=== PATIENT | male | born 2000 | race Caucasian/White ===

== ENCOUNTER 2018-04-23 11:48 | Inpatient (IN) | payer OTHER ==
[~2018-04-23] VITALS: Ht 177.8 cm; Wt 50.4 kg
[2018-04-23 12:22] LABS: BASO % 0 % (0-3); EOS % 0 % (0-3); HEMATOCRIT 42.9 % (39.0-53.0); HEMOGLOBIN 15.1 g/dL (13.0-17.5); LYMPH # 1.4 x10^3/uL (1.0-4.8); LYMPH % 10 % (24-48); MEAN CORPUSCULAR HEMOGLOBIN 32 pg (25-35); MEAN CORPUSCULAR HGB CONC 35 g/dL (31-37); MEAN CORPUSCULAR VOLUME 91 fL (79-100); MONO # 0.9 x10^3/uL (0.0-1.1); MONO % 7 % (0-9); NEUT % 82 % (31-73); PLATELET COUNT 329 x10^3/uL (140-400); RED BLOOD COUNT 4.71 x10^6/uL (4.30-5.70); RED CELL DISTRIBUTION WIDTH 12.7 % (11.5-14.5); WHITE BLOOD COUNT 13.4 x10^3/uL (4.0-11.0)
[2018-04-23 12:46] LABS: ALBUMIN 5.3 g/dL (3.4-5.0); ALBUMIN/GLOBULIN RATIO 1.2 (1.0-1.7); CALCIUM 10.7 mg/dL (8.5-10.1); CREATININE 1.1 mg/dL (0.7-1.3); GFR 86.2; POTASSIUM 3.5 mmol/L (3.5-5.1); TOTAL PROTEIN 9.7 g/dL (6.4-8.2)
--- NOTE | 2018-04-23 12:46 | RAD ---
CHEST AP ONLY Clinical Indication: AMS. PT STATES HAVING MEMORY LOSS Comparison: None. Findings: The cardiomediastinal silhouette is normal. Lungs are clear. There is no pneumothorax. No pleural effusion is appreciated. No acute bone abnormality. IMPRESSION: No acute cardiopulmonary process. Electronically signed by: Nathen Mares MD (04/23/2018 12:43 PM) [facility]
--- NOTE | 2018-04-23 13:42 | RAD ---
CT HEAD WO CONTRAST History: Recent onset confusion for 2 day Comparison: None. Technique: Noncontrast CT imaging was performed of the head. Exposure: One or more of the following individualized dose reduction techniques were utilized for this examination: 1. Automated exposure control 2. Adjustment of the mA and/or kV according to patient size 3. Use of iterative reconstruction technique. Findings: No acute extra-axial or parenchymal hemorrhage is identified. There is no significant intra-axial mass effect, midline shift, or extra-axial fluid collection. The aragon-white differentiation of the major vascular territories is preserved. The ventricles, sulci, and cisterns are within normal limits in size and configuration. The mastoid air cells and the visualized paranasal sinuses are aerated. No acute calvarial abnormality is identified. Impression: 1. No acute intracranial abnormality is identified. Electronically signed by: Ramsey Landers MD (04/23/2018 1:39 PM) [facility]
[2018-04-23] MEDS ORDERED: ALPRAZolam 0.5 MG TABLET PO ONE (13:45)
[2018-04-23 13:51] LABS: BILIRUBIN,URINE SMALL (NEG); CLARITY,URINE CLEAR; COLOR,URINE YELLOW; NITRITE,URINE NEGATIVE (NEG); PH,URINE 6.5; PROTEIN,URINE NEGATIVE (NEG-TRACE)
[2018-04-23 13:58] LABS: BARBITURATES NEG (NEG); BENZODIAZEPINES NEG (NEG); CANNABINOIDS POS (NEG); COCAINE NEG (NEG); METHADONE NEG (NEG); OPIATES NEG (NEG); PHENCYCLIDINE NEG (NEG)
[2018-04-23 13:59] LABS: AMPHETAMINE/METHAMPHETAMINE NEG (NEG)
[2018-04-23 14:05] LABS: RBC,URINE OCC /HPF (0-2); WBC,URINE OCC /HPF (0-4)
[2018-04-23 14:06] LABS: BACTERIA,URINE 0 /HPF (0-FEW); SQUAMOUS EPITHELIAL CELL,UR OCC /LPF
--- NOTE | 2018-04-23 15:44 | PHYS DOC ---
Past Medical History Past Medical History: No Pertinent History Past Surgical History: No Surgical History Alcohol Use: None Drug Use: Marijuana Adult General Chief Complaint Chief Complaint: ALTERED MENTAL STATUS HPI HPI Patient is a 17 year old male who presents with mental status. The patient's parents state that he left to go to work yesterday and came home at a normal time. They state that he told them he was missing time and has lost his memory of what occurred at work. His parents state that he has been making comments that do not make sense. He does admit to using marijuana but denies any other recreational drug use. He denies headache, fever or any recent illness. They state that he has no psychiatric diagnoses. The patient denies any visual or auditory hallucinations. He does state that he has frequent conversations with himself but describes the voice as his inner consciousness. Review of Systems Review of Systems Constitutional: Denies fever or chills [] Eyes: Denies change in visual acuity, redness, or eye pain [] HENT: Denies nasal congestion or sore throat [] Respiratory: Denies cough or shortness of breath [] Cardiovascular: No additional information not addressed in HPI [] GI: Denies abdominal pain, nausea, vomiting, bloody stools or diarrhea [] : Denies dysuria or hematuria [] Musculoskeletal: Denies back pain or joint pain [] Integument: Denies rash or skin lesions [] Neurologic: Denies headache, focal weakness or sensory changes [] Endocrine: Denies polyuria or polydipsia [] All other systems were reviewed and found to be within normal limits, except as documented in this note. Current Medications Current Medications Current Medications Medications (Trade) Dose Ordered Sig/Magdaleno Start Time Stop Time Status Last Admin Dose Admin Alprazolam (Xanax) 0.5 mg 1X ONCE 04/23/18 13:45 04/23/18 13:46 DC 04/23/18 14:00 0.5 MG Allergies Allergies Allergies Coded Allergies Type Severity Reaction Last Updated Verified nickel Allergy Unknown Rash 04/23/18 Yes Physical Exam Physical Exam Constitutional: Well developed, well nourished, no acute distress, non-toxic appearance. [] HENT: Normocephalic, atraumatic, bilateral external ears normal, oropharynx moist, no oral exudates, nose normal. [] Eyes: PERRLA, EOMI, conjunctiva normal, no discharge. [] Neck: Normal range of motion, no tenderness, supple, no stridor. [] Cardiovascular:Heart rate regular rhythm, no murmur [] Lungs & Thorax: Bilateral breath sounds clear to auscultation [] Abdomen: Bowel sounds normal, soft, no tenderness, no masses, no pulsatile masses. [] Skin: Warm, dry, no erythema, no rash. [] Back: No tenderness, no CVA tenderness. [] Extremities: No tenderness, no cyanosis, no clubbing, ROM intact, no edema. [] Neurologic: Alert and oriented X 3, normal motor function, normal sensory function, no focal deficits noted, cranial nerves II through XII are grossly intact. [] Psychologic: Affect normal, judgement normal, mood normal. [] Current Patient Data Vital Signs Vital Signs Date Time Temp Pulse Resp B/P (MAP) Pulse Ox O2 Delivery O2 Flow Rate FiO2 04/23/18 13:53 80 16 98 04/23/18 11:53 98.9 138/79 (98) Room Air 98.9 Lab Values Laboratory Tests Test 04/23/18 12:10 04/23/18 12:21 04/23/18 13:35 White Blood Count 13.4 x10^3/uL (4.0-11.0) H Red Blood Count 4.71 x10^6/uL (4.30-5.70) Hemoglobin 15.1 g/dL (13.0-17.5) Hematocrit 42.9 % (39.0-53.0) Mean Corpuscular Volume 91 fL (79-100) Mean Corpuscular Hemoglobin 32 pg (25-35) Mean Corpuscular Hemoglobin Concent 35 g/dL (31-37) Red Cell Distribution Width 12.7 % (11.5-14.5) Platelet Count 329 x10^3/uL (140-400) Neutrophils (%) (Auto) 82 % (31-73) H Lymphocytes (%) (Auto) 10 % (24-48) L Monocytes (%) (Auto) 7 % (0-9) Eosinophils (%) (Auto) 0 % (0-3) Basophils (%) (Auto) 0 % (0-3) Neutrophils # (Auto) 11.0 x10^3uL (1.8-7.7) H Lymphocytes # (Auto) 1.4 x10^3/uL (1.0-4.8) Monocytes # (Auto) 0.9 x10^3/uL (0.0-1.1) Eosinophils # (Auto) 0.0 x10^3/uL (0.0-0.7) Basophils # (Auto) 0.0 x10^3/uL (0.0-0.2) Sodium Level 141 mmol/L (136-145) Potassium Level 3.5 mmol/L (3.5-5.1) Chloride Level 99 mmol/L (98-107) Carbon Dioxide Level 29 mmol/L (21-32) Anion Gap 13 (6-14) Blood Urea Nitrogen 17 mg/dL (8-26) Creatinine 1.1 mg/dL (0.7-1.3) Estimated GFR (Cockcroft-Gault) 86.2 BUN/Creatinine Ratio 15 (6-20) Glucose Level 115 mg/dL (70-99) H Lactic Acid Level 0.9 mmol/L (0.4-2.0) Calcium Level 10.7 mg/dL (8.5-10.1) H Total Bilirubin 1.0 mg/dL (0.2-1.0) Aspartate Amino Transferase (AST) 17 U/L (15-37) Alanine Aminotransferase (ALT) 22 U/L (16-63) Alkaline Phosphatase 80 U/L (46-116) Total Protein 9.7 g/dL (6.4-8.2) H Albumin 5.3 g/dL (3.4-5.0) H Albumin/Globulin Ratio 1.2 (1.0-1.7) Glucose (Fingerstick) 114 mg/dL (70-99) H Urine Collection Type Unknown Urine Color Yellow Urine Clarity Clear Urine pH 6.5 Urine Specific [place] >=1.030 Urine Protein Negative mg/dL (NEG-TRACE) Urine Glucose (UA) Negative mg/dL (NEG) Urine Ketones (Stick) >=80 mg/dL (NEG) Urine Blood Negative (NEG) Urine Nitrite Negative (NEG) Urine Bilirubin Small (NEG) Urine Urobilinogen Dipstick 1.0 mg/dL (0.2 mg/dL) Urine Leukocyte Esterase Negative (NEG) Urine RBC Occ /HPF (0-2) Urine WBC Occ /HPF (0-4) Urine Squamous Epithelial Cells Occ /LPF Urine Bacteria 0 /HPF (0-FEW) Urine Mucus Marked /LPF Urine Opiates Screen Neg (NEG) Urine Methadone Screen Neg (NEG) Urine Barbiturates Neg (NEG) Urine Phencyclidine Screen Neg (NEG) Urine Amphetamine/Methamphetamine Neg (NEG) Urine Benzodiazepines Screen Neg (NEG) Urine Cocaine Screen Neg (NEG) Urine Cannabinoids Screen Pos (NEG) Urine Ethyl Alcohol Neg (NEG) Laboratory Tests 04/23/18 12:10 Laboratory Tests 04/23/18 12:10 EKG EKG [] Radiology/Procedures Radiology/Procedures [] Course & Med Decision Making Course & Med Decision Making Pertinent Labs and Imaging studies reviewed. (See chart for details) []Giana, with the psychiatric assessment team, is on site to interview the patient. The patient is being admitted to Dr. Vidal's service and Dr. Wynne will be consulted in the care of this patient. The patient was given a dose of Xanax in the emergency department. The patient states that it did help relieve his agitation. Dragon Disclaimer Dragon Disclaimer This electronic medical record was generated, in whole or in part, using a voice recognition dictation system. Departure Departure Impression: Primary Impression: Mental status alteration Disposition: ADMITTED INPATIENT Admitting Physician: Jennifer Vidal Condition: GOOD Referrals: NO PCP (PCP) CARLOTTA PANIAGUA APRN Apr 23, 2018 15:43
[2018-04-23] MEDS ORDERED: ACETAMINOPHEN 325 MG TABLET. PO PRN (16:30)
--- NOTE | 2018-04-23 17:53 | HP ---
ADMIT DATE: 04/23/2018 CHIEF COMPLAINT: Mental status change. HISTORY OF PRESENT ILLNESS: The patient is a pleasant, healthy 17-year-old male who works at [employer]. He has been acting odd the last few days. Mom brought him in. She is concerned that something is going on. The ER physician called me. She was concerned this could be psychiatric issue such as schizophrenia. I have come to see the patient. Upon further questioning of the patient, he now admits that he periodically does LSD and clinically he seems to be on a bad LSD trip by my eyes. We are going to admit the patient and consult the psychiatric assessment team. He might also have schizophrenia, we are just not really clear at this time. PAST MEDICAL HISTORY: Benign. ALLERGIES: NICKEL. FAMILY HISTORY: Hypertension. SOCIAL HISTORY: He smokes marijuana. He uses LSD, I imagine he probably does other things, but he is a good kid. He works at [employer] [place]. MEDICATIONS: Reviewed. REVIEW OF SYSTEMS: Unable to obtain. The patient is too confused. PHYSICAL EXAMINATION: VITAL SIGNS: Temperature afebrile, pulse 110, respirations 18, blood pressure 130/79. GENERAL: He is alert, but very paranoid, impulsive, got up and washed his hands in the middle of my interview, somewhat poorly kept, very anxious, looking back and forth across the room. HEART: Distant S1, S2, tachycardic at times. LUNGS: Clear. ABDOMEN: Soft. EXTREMITIES: No edema. SKIN: No rashes. His nose is little red. ENDOCRINE: No thyromegaly. LYMPHATICS: No cervical nodes. HEMATOPOIETIC: No bruising. LABORATORY DATA: White count 13, hemoglobin 15, platelets 329. Electrolytes are normal. Glucose is slightly high at 115. Calcium 10.7. Urine drug screen is positive for cannabinoids. Urinalysis negative. ASSESSMENT AND PLAN: Mental status change clinically consistent with hallucinogenic drug in my opinion. Perhaps this could be LSD or bath salts or GHB or some other hallucinogens that does not show up on our drug screen. We are going to need to watch him for a couple of days. We will have psychiatric assessment team look at him and make sure he does not have schizophrenia, but I do not think so. IV hydration. One-to-one observation. Cardiac monitoring. I have discussed the case with the mother, the psychiatric assessment nurse and the RN here in the ER and the ER physician. VANESA MEDRANO DO DR: ASHLEY/maribell JOB#: [id number] / [id number]
[2018-04-23 19:00] VITALS: BP 115/79
[2018-04-23] MEDS ORDERED: TEMAZEPAM 15 MG CAPSULE PO PRN (20:45)
[2018-04-23] MEDS: BENZONATATE 100 MG CAPSULE. PO SCH (21:31)
[2018-04-23] MEDS: IV NORMAL SALINE 1000ML BAG 1,000 ML IV SCH (21:32)
[2018-04-23 22:57] VITALS: BP 104/49
[2018-04-24 02:52] VITALS: BP 98/47
[2018-04-24 05:23] LABS: BASO # 0.1 x10^3/uL (0.0-0.2); BASO % 1 % (0-3); EOS # 0.1 x10^3/uL (0.0-0.7); EOS % 1 % (0-3); HEMATOCRIT 40.7 % (39.0-53.0); HEMOGLOBIN 14.3 g/dL (13.0-17.5); LYMPH # 2.3 x10^3/uL (1.0-4.8); LYMPH % 21 % (24-48); MEAN CORPUSCULAR HEMOGLOBIN 32 pg (25-35); MEAN CORPUSCULAR HGB CONC 35 g/dL (31-37); MEAN CORPUSCULAR VOLUME 91 fL (79-100); MONO # 1.1 x10^3/uL (0.0-1.1); MONO % 10 % (0-9); NEUT # 7.4 x10^3uL (1.8-7.7); NEUT % 67 % (31-73); PLATELET COUNT 268 x10^3/uL (140-400); RED BLOOD COUNT 4.47 x10^6/uL (4.30-5.70); RED CELL DISTRIBUTION WIDTH 12.6 % (11.5-14.5); WHITE BLOOD COUNT 10.9 x10^3/uL (4.0-11.0)
[2018-04-24 05:33] LABS: CALCIUM 9.5 mg/dL (8.5-10.1); GFR 96.3; POTASSIUM 3.3 mmol/L (3.5-5.1)
[2018-04-24 07:00] VITALS: BP 104/61
[2018-04-24] MEDS: IV NORMAL SALINE 1000ML BAG 1,000 ML IV SCH ×3 (07:00→23:36)
[2018-04-24] MEDS ORDERED: POTASSIUM CHLORIDE 20 MEQ TABLET.ER. PO ONE (09:45)
[2018-04-24] MEDS: BENZONATATE 100 MG CAPSULE. PO SCH ×3 (10:43→21:31)
[2018-04-24 11:21] VITALS: BP 110/64
--- NOTE | 2018-04-24 11:59 | PDOC ---
Infectious Disease Note Vital Sign Vital Signs Vital Signs Date Time Temp Pulse Resp B/P (MAP) Pulse Ox O2 Delivery O2 Flow Rate FiO2 04/24/18 11:21 97.9 80 17 110/64 (79) 98 Room Air 97.9 Labs Lab Laboratory Tests Test 04/23/18 12:10 04/23/18 12:21 04/23/18 13:35 04/24/18 03:50 White Blood Count 13.4 x10^3/uL (4.0-11.0) 10.9 x10^3/uL (4.0-11.0) Red Blood Count 4.71 x10^6/uL (4.30-5.70) 4.47 x10^6/uL (4.30-5.70) Hemoglobin 15.1 g/dL (13.0-17.5) 14.3 g/dL (13.0-17.5) Hematocrit 42.9 % (39.0-53.0) 40.7 % (39.0-53.0) Mean Corpuscular Volume 91 fL (79-100) 91 fL (79-100) Mean Corpuscular Hemoglobin 32 pg (25-35) 32 pg (25-35) Mean Corpuscular Hemoglobin Concent 35 g/dL (31-37) 35 g/dL (31-37) Red Cell Distribution Width 12.7 % (11.5-14.5) 12.6 % (11.5-14.5) Platelet Count 329 x10^3/uL (140-400) 268 x10^3/uL (140-400) Neutrophils (%) (Auto) 82 % (31-73) 67 % (31-73) Lymphocytes (%) (Auto) 10 % (24-48) 21 % (24-48) Monocytes (%) (Auto) 7 % (0-9) 10 % (0-9) Eosinophils (%) (Auto) 0 % (0-3) 1 % (0-3) Basophils (%) (Auto) 0 % (0-3) 1 % (0-3) Neutrophils # (Auto) 11.0 x10^3uL (1.8-7.7) 7.4 x10^3uL (1.8-7.7) Lymphocytes # (Auto) 1.4 x10^3/uL (1.0-4.8) 2.3 x10^3/uL (1.0-4.8) Monocytes # (Auto) 0.9 x10^3/uL (0.0-1.1) 1.1 x10^3/uL (0.0-1.1) Eosinophils # (Auto) 0.0 x10^3/uL (0.0-0.7) 0.1 x10^3/uL (0.0-0.7) Basophils # (Auto) 0.0 x10^3/uL (0.0-0.2) 0.1 x10^3/uL (0.0-0.2) Sodium Level 141 mmol/L (136-145) Potassium Level 3.5 mmol/L (3.5-5.1) Chloride Level 99 mmol/L (98-107) Carbon Dioxide Level 29 mmol/L (21-32) Anion Gap 13 (6-14) Blood Urea Nitrogen 17 mg/dL (8-26) Creatinine 1.1 mg/dL (0.7-1.3) Estimated GFR (Cockcroft-Gault) 86.2 BUN/Creatinine Ratio 15 (6-20) Glucose Level 115 mg/dL (70-99) Lactic Acid Level 0.9 mmol/L (0.4-2.0) Calcium Level 10.7 mg/dL (8.5-10.1) Total Bilirubin 1.0 mg/dL (0.2-1.0) Aspartate Amino Transf (AST/SGOT) 17 U/L (15-37) Alanine Aminotransferase (ALT/SGPT) 22 U/L (16-63) Alkaline Phosphatase 80 U/L (46-116) Total Protein 9.7 g/dL (6.4-8.2) Albumin 5.3 g/dL (3.4-5.0) Albumin/Globulin Ratio 1.2 (1.0-1.7) Glucose (Fingerstick) 114 mg/dL (70-99) Urine Collection Type Unknown Urine Color Yellow Urine Clarity Clear Urine pH 6.5 Urine Specific [place] >=1.030 Urine Protein Negative mg/dL (NEG-TRACE) Urine Glucose (UA) Negative mg/dL (NEG) Urine Ketones (Stick) >=80 mg/dL (NEG) Urine Blood Negative (NEG) Urine Nitrite Negative (NEG) Urine Bilirubin Small (NEG) Urine Urobilinogen Dipstick 1.0 mg/dL (0.2 mg/dL) Urine Leukocyte Esterase Negative (NEG) Urine RBC Occ /HPF (0-2) Urine WBC Occ /HPF (0-4) Urine Squamous Epithelial Cells Occ /LPF Urine Bacteria 0 /HPF (0-FEW) Urine Mucus Marked /LPF Urine Opiates Screen Neg (NEG) Urine Methadone Screen Neg (NEG) Urine Barbiturates Neg (NEG) Urine Phencyclidine Screen Neg (NEG) Urine Amphetamine/Methamphetamine Neg (NEG) Urine Benzodiazepines Screen Neg (NEG) Urine Cocaine Screen Neg (NEG) Urine Cannabinoids Screen Pos (NEG) Urine Ethyl Alcohol Neg (NEG) Test 04/24/18 03:58 Sodium Level 141 mmol/L (136-145) Potassium Level 3.3 mmol/L (3.5-5.1) Chloride Level 103 mmol/L (98-107) Carbon Dioxide Level 27 mmol/L (21-32) Anion Gap 11 (6-14) Blood Urea Nitrogen 16 mg/dL (8-26) Creatinine 1.0 mg/dL (0.7-1.3) Estimated GFR (Cockcroft-Gault) 96.3 Glucose Level 90 mg/dL (70-99) Calcium Level 9.5 mg/dL (8.5-10.1) Micro Microbiology 04/23/18 Blood Culture - Final, Complete Objective Assessment GPC bacteremia POA on 04/23 (1 of 2 bottles) Acute encephalopathy with behavioral changes Substance use. LSD and marijuana Leukocytosis - improved Recent history of injury to right hand - healing Plan Plan of Care Dose vancomycin Monitor labs/renal function closely Awaiting neurology evaluation Repeat BC D/w parents D/w Dr. Vidal D/w RN Thank you [phone] Attending Co-Sign The patient was seen and interviewed as well as examined at the bedside. The chart was reviewed. The case was discussed. Agree with the plan of care. TIBURCIO VU APRN Apr 24, 2018 11:59 SALVATORE MARTINI MD Apr 24, 2018 14:30
[2018-04-24] MEDS ORDERED: VANCOMYCIN 1.25 GM in IV NORMAL SALINE 250ML 250 ML IV ONE (12:00)
--- NOTE | 2018-04-24 13:29 | CONS ---
DATE OF CONSULTATION: 04/24/2018 REFERRING PHYSICIAN: Dr. Vidal. REASON FOR CONSULTATION: Positive blood cultures. HISTORY OF PRESENT ILLNESS: This patient is a 17-year-old male who was brought to the ER by his family for evaluation of odd behavior and confusion. According to his parents, he has been acting not himself. He has been somewhat jittery. His conversations are illogical, not making much sense, and he has been lacking comprehension. On arrival, he was found to have elevated white blood cell count of 13,400 and a normal lactic acid. Urine toxicology was positive for cannabinoids. A CT head was unremarkable. Blood cultures have now returned positive for gram-positive cocci in clusters, one of two bottles. Hence, ID consult. The patient himself says he has been stressed. He says he has been having some gaps in memory. He denies fevers, chills or body aches. He woke up this morning in sweats. He recalls coming in and out of the house multiple times and taking a long walk prior to admission. With his parents outside the room, he admits to doing LSD and marijuana. He said about a week or two ago he was skateboarding and fell resulting in a cut to his right hand. Other than soreness, he denies drainage, redness, or decreased range of motion. He has not been eating very much lately and has lost 13 pounds. He is requesting to be released and promises to return in a day or two and gives no particular reason. PAST MEDICAL HISTORY: No significant past medical history. PAST SURGICAL HISTORY: No significant past surgical history. FAMILY HISTORY: Positive for anxiety and depression. SOCIAL HISTORY: The patient is single and lives at home with his parents. He is employed at [employer]. He attended college for a couple of semesters. He is sexually active. He says he was tested for a number of STDs a few months back and was found negative. He denies IV drug use. He uses marijuana, LSD and tobacco. He does not know his HIV status. ALLERGIES: LISTED JIMMIE. MEDICATIONS: Reviewed on SEP. PHYSICAL EXAMINATION: GENERAL: The patient is slightly propped up in bed, alert, in no apparent distress. VITAL SIGNS: Afebrile, blood pressure 110/64, heart rate 80, respiratory rate 17, pulse oximetry is 98% on room air. BMI 15. HEENT: Pupils equally round, reactive. Normal conjunctivae. Oral cavity, pharynx pink and moist. NECK: Supple. LUNGS: Clear to auscultation. HEART: S1, S2, no murmur appreciated. ABDOMEN: Nondistended. Bowel sounds active, soft, nontender. EXTREMITIES: No gross edema or cyanosis. SKIN: Warm without rash. He has a small wound to the palm of his right hand that is healing. No signs of infection. NEUROLOGIC: Alert and oriented x 3. Somewhat of a poor historian. Moves all extremities. LABORATORY DATA: WBC 10.9 from 13.4 on admission, hemoglobin 14.3, platelet count 268,000. Sodium 141, potassium 3.3, creatinine 1.0, BUN 16, glucose 90, lactic acid 0.9, total bilirubin 1.0, AST 17, ALT 22, albumin 5.3. Urine toxicology positive for cannabinoids. Urinalysis unremarkable for infection. Blood cultures positive for gram-positive cocci in clusters suggestive of staph in 1 of 2 bottles. Chest x-ray shows no acute cardiopulmonary process. Head CT without contrast showed no acute intracranial abnormality. IMPRESSION: 1. Bacteremia with gram-positive cocci in clusters suggestive of staph, present on admission. 2. Acute encephalopathy with behavioral changes. 3. Substance use consisting of LSD and marijuana. 4. Leukocytosis, improved. 5. Recent history of injury to right hand, healing. PLAN: Based on blood cultures we will dose with vancomycin. Continue to monitor laboratory values and renal function closely. Neurology has been consulted. We will repeat blood cultures. I have discussed with parents. Thank you, Dr. Vidal, for asking us to participate in this patient's care. Should you have further questions or concerns, please call. SALVATORE MARTINI MD DR: NIA/maribell JOB#: [id number] / [id number]
--- NOTE | 2018-04-24 13:51 | PDOC ---
PROGRESS NOTES Chief Complaint Chief Complaint Acute encephalopathy with behavioral changes Acute altered mental status GPC bacteremia Substance use, LSD and marijuana Hypokalemia Leukocytosis Recent history of injury to right hand History of Present Illness History of Present Illness Pt seen and examined DW Mom DW RNs He is a little less confused. Want to leave , but doesnt seem safe. Vitals Vitals Vital Signs Date Time Temp Pulse Resp B/P (MAP) Pulse Ox O2 Delivery O2 Flow Rate FiO2 04/24/18 11:21 97.9 80 17 110/64 (79) 98 Room Air 97.9 Physical Exam General: Alert, mild distress, Other (Anxious, paranoia. ) Heart: Regular rate, Normal S1 Lungs: Clear Abdomen: Normal bowel sounds Extremities: No clubbing, No cyanosis Skin: No rashes, No breakdown Labs LABS Laboratory Tests Test 04/24/18 03:50 04/24/18 03:58 White Blood Count 10.9 x10^3/uL (4.0-11.0) Red Blood Count 4.47 x10^6/uL (4.30-5.70) Hemoglobin 14.3 g/dL (13.0-17.5) Hematocrit 40.7 % (39.0-53.0) Mean Corpuscular Volume 91 fL (79-100) Mean Corpuscular Hemoglobin 32 pg (25-35) Mean Corpuscular Hemoglobin Concent 35 g/dL (31-37) Red Cell Distribution Width 12.6 % (11.5-14.5) Platelet Count 268 x10^3/uL (140-400) Neutrophils (%) (Auto) 67 % (31-73) Lymphocytes (%) (Auto) 21 % (24-48) Monocytes (%) (Auto) 10 % (0-9) Eosinophils (%) (Auto) 1 % (0-3) Basophils (%) (Auto) 1 % (0-3) Neutrophils # (Auto) 7.4 x10^3uL (1.8-7.7) Lymphocytes # (Auto) 2.3 x10^3/uL (1.0-4.8) Monocytes # (Auto) 1.1 x10^3/uL (0.0-1.1) Eosinophils # (Auto) 0.1 x10^3/uL (0.0-0.7) Basophils # (Auto) 0.1 x10^3/uL (0.0-0.2) Sodium Level 141 mmol/L (136-145) Potassium Level 3.3 mmol/L (3.5-5.1) Chloride Level 103 mmol/L (98-107) Carbon Dioxide Level 27 mmol/L (21-32) Anion Gap 11 (6-14) Blood Urea Nitrogen 16 mg/dL (8-26) Creatinine 1.0 mg/dL (0.7-1.3) Estimated GFR (Cockcroft-Gault) 96.3 Glucose Level 90 mg/dL (70-99) Calcium Level 9.5 mg/dL (8.5-10.1) Review of Systems Review of Systems Pt denies any fevers, denies any weakness. Assessment and Plan Assessmemt and Plan Problems Medical Problems: (1) Mental status alteration Status: Acute Assessment: AMS - (new onset psychiatric illness versus substance-induced psychosis?) Encephalopathy with behavioral changes Acute altered mental status GPC bacteremia Substance use, LSD and marijuana Hypokalemia Leukocytosis Recent history of injury to right hand Plan: Await PAT input Empiric antibiotics for posible bacteremia Consulted ID ([employer] TEAM PHYSICIAN) Ordered 40 mg KCl Recheck labs for leukocytosis and blood cultures Comment Review of Relevant I have reviewed the following items christina (where applicable) has been applied. Labs Laboratory Tests Test 04/23/18 12:10 04/23/18 12:21 04/23/18 13:35 04/24/18 03:50 White Blood Count 13.4 x10^3/uL (4.0-11.0) 10.9 x10^3/uL (4.0-11.0) Red Blood Count 4.71 x10^6/uL (4.30-5.70) 4.47 x10^6/uL (4.30-5.70) Hemoglobin 15.1 g/dL (13.0-17.5) 14.3 g/dL (13.0-17.5) Hematocrit 42.9 % (39.0-53.0) 40.7 % (39.0-53.0) Mean Corpuscular Volume 91 fL (79-100) 91 fL (79-100) Mean Corpuscular Hemoglobin 32 pg (25-35) 32 pg (25-35) Mean Corpuscular Hemoglobin Concent 35 g/dL (31-37) 35 g/dL (31-37) Red Cell Distribution Width 12.7 % (11.5-14.5) 12.6 % (11.5-14.5) Platelet Count 329 x10^3/uL (140-400) 268 x10^3/uL (140-400) Neutrophils (%) (Auto) 82 % (31-73) 67 % (31-73) Lymphocytes (%) (Auto) 10 % (24-48) 21 % (24-48) Monocytes (%) (Auto) 7 % (0-9) 10 % (0-9) Eosinophils (%) (Auto) 0 % (0-3) 1 % (0-3) Basophils (%) (Auto) 0 % (0-3) 1 % (0-3) Neutrophils # (Auto) 11.0 x10^3uL (1.8-7.7) 7.4 x10^3uL (1.8-7.7) Lymphocytes # (Auto) 1.4 x10^3/uL (1.0-4.8) 2.3 x10^3/uL (1.0-4.8) Monocytes # (Auto) 0.9 x10^3/uL (0.0-1.1) 1.1 x10^3/uL (0.0-1.1) Eosinophils # (Auto) 0.0 x10^3/uL (0.0-0.7) 0.1 x10^3/uL (0.0-0.7) Basophils # (Auto) 0.0 x10^3/uL (0.0-0.2) 0.1 x10^3/uL (0.0-0.2) Sodium Level 141 mmol/L (136-145) Potassium Level 3.5 mmol/L (3.5-5.1) Chloride Level 99 mmol/L (98-107) Carbon Dioxide Level 29 mmol/L (21-32) Anion Gap 13 (6-14) Blood Urea Nitrogen 17 mg/dL (8-26) Creatinine 1.1 mg/dL (0.7-1.3) Estimated GFR (Cockcroft-Gault) 86.2 BUN/Creatinine Ratio 15 (6-20) Glucose Level 115 mg/dL (70-99) Lactic Acid Level 0.9 mmol/L (0.4-2.0) Calcium Level 10.7 mg/dL (8.5-10.1) Total Bilirubin 1.0 mg/dL (0.2-1.0) Aspartate Amino Transf (AST/SGOT) 17 U/L (15-37) Alanine Aminotransferase (ALT/SGPT) 22 U/L (16-63) Alkaline Phosphatase 80 U/L (46-116) Total Protein 9.7 g/dL (6.4-8.2) Albumin 5.3 g/dL (3.4-5.0) Albumin/Globulin Ratio 1.2 (1.0-1.7) Glucose (Fingerstick) 114 mg/dL (70-99) Urine Collection Type Unknown Urine Color Yellow Urine Clarity Clear Urine pH 6.5 Urine Specific [place] >=1.030 Urine Protein Negative mg/dL (NEG-TRACE) Urine Glucose (UA) Negative mg/dL (NEG) Urine Ketones (Stick) >=80 mg/dL (NEG) Urine Blood Negative (NEG) Urine Nitrite Negative (NEG) Urine Bilirubin Small (NEG) Urine Urobilinogen Dipstick 1.0 mg/dL (0.2 mg/dL) Urine Leukocyte Esterase Negative (NEG) Urine RBC Occ /HPF (0-2) Urine WBC Occ /HPF (0-4) Urine Squamous Epithelial Cells Occ /LPF Urine Bacteria 0 /HPF (0-FEW) Urine Mucus Marked /LPF Urine Opiates Screen Neg (NEG) Urine Methadone Screen Neg (NEG) Urine Barbiturates Neg (NEG) Urine Phencyclidine Screen Neg (NEG) Urine Amphetamine/Methamphetamine Neg (NEG) Urine Benzodiazepines Screen Neg (NEG) Urine Cocaine Screen Neg (NEG) Urine Cannabinoids Screen Pos (NEG) Urine Ethyl Alcohol Neg (NEG) Test 04/24/18 03:58 Sodium Level 141 mmol/L (136-145) Potassium Level 3.3 mmol/L (3.5-5.1) Chloride Level 103 mmol/L (98-107) Carbon Dioxide Level 27 mmol/L (21-32) Anion Gap 11 (6-14) Blood Urea Nitrogen 16 mg/dL (8-26) Creatinine 1.0 mg/dL (0.7-1.3) Estimated GFR (Cockcroft-Gault) 96.3 Glucose Level 90 mg/dL (70-99) Calcium Level 9.5 mg/dL (8.5-10.1) Laboratory Tests Test 04/24/18 03:50 04/24/18 03:58 White Blood Count 10.9 x10^3/uL (4.0-11.0) Red Blood Count 4.47 x10^6/uL (4.30-5.70) Hemoglobin 14.3 g/dL (13.0-17.5) Hematocrit 40.7 % (39.0-53.0) Mean Corpuscular Volume 91 fL (79-100) Mean Corpuscular Hemoglobin 32 pg (25-35) Mean Corpuscular Hemoglobin Concent 35 g/dL (31-37) Red Cell Distribution Width 12.6 % (11.5-14.5) Platelet Count 268 x10^3/uL (140-400) Neutrophils (%) (Auto) 67 % (31-73) Lymphocytes (%) (Auto) 21 % (24-48) Monocytes (%) (Auto) 10 % (0-9) Eosinophils (%) (Auto) 1 % (0-3) Basophils (%) (Auto) 1 % (0-3) Neutrophils # (Auto) 7.4 x10^3uL (1.8-7.7) Lymphocytes # (Auto) 2.3 x10^3/uL (1.0-4.8) Monocytes # (Auto) 1.1 x10^3/uL (0.0-1.1) Eosinophils # (Auto) 0.1 x10^3/uL (0.0-0.7) Basophils # (Auto) 0.1 x10^3/uL (0.0-0.2) Sodium Level 141 mmol/L (136-145) Potassium Level 3.3 mmol/L (3.5-5.1) Chloride Level 103 mmol/L (98-107) Carbon Dioxide Level 27 mmol/L (21-32) Anion Gap 11 (6-14) Blood Urea Nitrogen 16 mg/dL (8-26) Creatinine 1.0 mg/dL (0.7-1.3) Estimated GFR (Cockcroft-Gault) 96.3 Glucose Level 90 mg/dL (70-99) Calcium Level 9.5 mg/dL (8.5-10.1) Microbiology 04/23/18 Blood Culture - Final, Complete Medications Current Medications Alprazolam (Xanax) 0.5 mg 1X ONCE PO Last administered on 04/23/18at 14:00; Start 04/23/18 at 13:45; Stop 04/23/18 at 13:46; Status DC Acetaminophen (Tylenol) 650 mg PRN Q4HRS PRN PO FEVER; Start 04/23/18 at 16:30 ; Stop 04/24/18 at 16:29 Benzonatate (Tessalon Perle) 100 mg [id number] PO Last administered on 04/24/18at 10:43; Start 04/23/18 at 21:00 Temazepam (Restoril) 15 mg PRN QHS PRN PO INSOMNIA Last administered on at 21:31; Start 04/23/18 at 20:45 Sodium Chloride 1,000 ml @ 100 mls/hr Q10H IV Last administered on 04/24/18at 07:00; Start 04/23/18 at 21:00 Potassium Chloride (Klor-Con) 40 meq 1X ONCE PO Last administered on at 10:44; Start 04/24/18 at 09:45; Stop 04/24/18 at 09:46; Status DC Vancomycin HCl (Vanco Per Pharmacy) 1 each PRN DAILY PRN MC SEE COMMENTS; Start 04/24/18 at 11:45 Vancomycin HCl 1.25 gm/Sodium Chloride 250 ml @ 166.667 mls/hr 1X ONCE IV ; Start 04/24/18 at 12:00; Stop 04/24/18 at 13:29; Status DC Vitals/I & O Vital Sign - Last 24 Hours 04/23/18 04/23/18 04/23/18 04/23/18 13:53 19:00 20:35 22:57 Temp 98.8 97.5 98.8 97.5 Pulse 80 92 63 Resp 16 18 18 B/P (MAP) 115/79 (91) 104/49 (67) Pulse Ox 98 98 96 O2 Delivery Room Air Room Air Room Air 04/24/18 04/24/18 04/24/18 04/24/18 02:52 07:00 08:00 11:21 Temp 97.7 98.8 97.9 97.7 98.8 97.9 Pulse 72 70 80 Resp 18 17 17 B/P (MAP) 98/47 (64) 104/61 (75) 110/64 (79) Pulse Ox 98 97 98 O2 Delivery Room Air Room Air Room Air Room Air Intake and Output 04/23/18 04/23/18 04/24/18 15:00 23:00 07:00 Intake Total 551 ml Balance 551 ml VANESA MEDRANO III DO Apr 24, 2018 13:50
[2018-04-24 15:00] VITALS: BP 103/64
--- NOTE | 2018-04-24 15:18 | PDOC2 ---
NEUROLOGY CONSULT Date of Admission Date of Admission DATE: 04/24/18 TIME: 15:08 Reason for Consult Reason for Consult: Psychosis Referring Physician Referring Physician: Dr. Vidal Source Source: Caregiver (mother, grandmother), Chart review, Patient History of Present Illness History of Present Illness The patient is a 17-year-old right-handed male brought in by his mother yesterday because he hasn't been acting right the last few days. He says he loses track of time, keeps repeating himself, and also has been hearing voices. He did use some LSD to months ago, but denies any sense. He denies any other street drugs or alcohol use. There is a family history of psychiatric conditions. There is no history of stroke, seizure, or head injury. 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[employer], finished 2 semesters in sociology at [employer], planning to go back, lives with parents Current Medications Current Medications Current Medications Alprazolam (Xanax) 0.5 mg 1X ONCE PO Last administered on 04/23/18at 14:00; Start 04/23/18 at 13:45; Stop 04/23/18 at 13:46; Status DC Acetaminophen (Tylenol) 650 mg PRN Q4HRS PRN PO FEVER; Start 04/23/18 at 16:30 ; Stop 04/24/18 at 16:29 Benzonatate (Tessalon Perle) 100 mg [id number] PO Last administered on 04/24/18at 10:43; Start 04/23/18 at 21:00 Temazepam (Restoril) 15 mg PRN QHS PRN PO INSOMNIA Last administered on at 21:31; Start 04/23/18 at 20:45 Sodium Chloride 1,000 ml @ 100 mls/hr Q10H IV Last administered on 04/24/18at 07:00; Start 04/23/18 at 21:00 Potassium Chloride (Klor-Con) 40 meq 1X ONCE PO Last administered on at 10:44; Start 04/24/18 at 09:45; Stop 04/24/18 at 09:46; Status DC Vancomycin HCl (Vanco Per Pharmacy) 1 each PRN DAILY PRN MC SEE COMMENTS; Start 04/24/18 at 11:45 Vancomycin HCl 1.25 gm/Sodium Chloride 250 ml @ 166.667 mls/hr 1X ONCE IV Last administered on 04/24/18at 12:00; Start 04/24/18 at 12:00; Stop 04/24/18 at 13:29; Status DC Allergies Allergies: Coded Allergies: nickel (Verified Allergy, Intermediate, Rash, 04/24/18) ROS Review of System Patient denies fevers, chills, weight loss, dyspnea, angina, abdominal pain, change in bowels, or dysuria. 14-point review of systems is negative. Physical Exam Physical Examination General: Well-developed, well-nourished, white male, in no acute distress HEENT: Normocephalic andatraumatic. Temporal arteriespulsatile and nontender. Neck: Supple without bruit, no meningismus Musculoskeletal: Stability:see neurologic. Gait exam:see neurologic. Tone:see neurologic. Strength:see neurologic. Neurological: Mental Status:intact, orientation, memory, attention span/concentration, language, fund of knowledge normal. He has normal appearance, some rapidity of speech and nervousness, does cooperate with examination. He does endorse auditory hallucinations. Mood and affect are normal.. Cranial Nerves:Pupils equal and reactive to light, extraocular movements areintact, visual tran are full to confrontation. Facial sensation is normal. There is no facial asymmetry. Vestibulo-ocular reflex is intact. Palate elvates and tongue protrudes in midline. All other cranial related problems are negative except as mentioned before.Reflexes:2+ and symmetric with flexor plantar responses. Motor:5/5 strength with normal tone and bulk. Coordination:Finger-nose finger and [id number] testing are normal. Rapid alternating movements and fine finger movements are intact. Gait:Normal, including tandem. Sensory:Normal pinprick, vibration, light touch, proprioception. Vitals VITALS Vital Signs Date Time Temp Pulse Resp B/P (MAP) Pulse Ox O2 Delivery O2 Flow Rate FiO2 04/24/18 11:21 97.9 80 17 110/64 (79) 98 Room Air 97.9 Labs Labs Laboratory Tests Test 04/23/18 12:10 04/23/18 12:21 04/23/18 13:35 04/24/18 03:50 White Blood Count 13.4 x10^3/uL (4.0-11.0) 10.9 x10^3/uL (4.0-11.0) Red Blood Count 4.71 x10^6/uL (4.30-5.70) 4.47 x10^6/uL (4.30-5.70) Hemoglobin 15.1 g/dL (13.0-17.5) 14.3 g/dL (13.0-17.5) Hematocrit 42.9 % (39.0-53.0) 40.7 % (39.0-53.0) Mean Corpuscular Volume 91 fL (79-100) 91 fL (79-100) Mean Corpuscular Hemoglobin 32 pg (25-35) 32 pg (25-35) Mean Corpuscular Hemoglobin Concent 35 g/dL (31-37) 35 g/dL (31-37) Red Cell Distribution Width 12.7 % (11.5-14.5) 12.6 % (11.5-14.5) Platelet Count 329 x10^3/uL (140-400) 268 x10^3/uL (140-400) Neutrophils (%) (Auto) 82 % (31-73) 67 % (31-73) Lymphocytes (%) (Auto) 10 % (24-48) 21 % (24-48) Monocytes (%) (Auto) 7 % (0-9) 10 % (0-9) Eosinophils (%) (Auto) 0 % (0-3) 1 % (0-3) Basophils (%) (Auto) 0 % (0-3) 1 % (0-3) Neutrophils # (Auto) 11.0 x10^3uL (1.8-7.7) 7.4 x10^3uL (1.8-7.7) Lymphocytes # (Auto) 1.4 x10^3/uL (1.0-4.8) 2.3 x10^3/uL (1.0-4.8) Monocytes # (Auto) 0.9 x10^3/uL (0.0-1.1) 1.1 x10^3/uL (0.0-1.1) Eosinophils # (Auto) 0.0 x10^3/uL (0.0-0.7) 0.1 x10^3/uL (0.0-0.7) Basophils # (Auto) 0.0 x10^3/uL (0.0-0.2) 0.1 x10^3/uL (0.0-0.2) Sodium Level 141 mmol/L (136-145) Potassium Level 3.5 mmol/L (3.5-5.1) Chloride Level 99 mmol/L (98-107) Carbon Dioxide Level 29 mmol/L (21-32) Anion Gap 13 (6-14) Blood Urea Nitrogen 17 mg/dL (8-26) Creatinine 1.1 mg/dL (0.7-1.3) Estimated GFR (Cockcroft-Gault) 86.2 BUN/Creatinine Ratio 15 (6-20) Glucose Level 115 mg/dL (70-99) Lactic Acid Level 0.9 mmol/L (0.4-2.0) Calcium Level 10.7 mg/dL (8.5-10.1) Total Bilirubin 1.0 mg/dL (0.2-1.0) Aspartate Amino Transf (AST/SGOT) 17 U/L (15-37) Alanine Aminotransferase (ALT/SGPT) 22 U/L (16-63) Alkaline Phosphatase 80 U/L (46-116) Total Protein 9.7 g/dL (6.4-8.2) Albumin 5.3 g/dL (3.4-5.0) Albumin/Globulin Ratio 1.2 (1.0-1.7) Glucose (Fingerstick) 114 mg/dL (70-99) Urine Collection Type Unknown Urine Color Yellow Urine Clarity Clear Urine pH 6.5 Urine Specific [place] >=1.030 Urine Protein Negative mg/dL (NEG-TRACE) Urine Glucose (UA) Negative mg/dL (NEG) Urine Ketones (Stick) >=80 mg/dL (NEG) Urine Blood Negative (NEG) Urine Nitrite Negative (NEG) Urine Bilirubin Small (NEG) Urine Urobilinogen Dipstick 1.0 mg/dL (0.2 mg/dL) Urine Leukocyte Esterase Negative (NEG) Urine RBC Occ /HPF (0-2) Urine WBC Occ /HPF (0-4) Urine Squamous Epithelial Cells Occ /LPF Urine Bacteria 0 /HPF (0-FEW) Urine Mucus Marked /LPF Urine Opiates Screen Neg (NEG) Urine Methadone Screen Neg (NEG) Urine Barbiturates Neg (NEG) Urine Phencyclidine Screen Neg (NEG) Urine Amphetamine/Methamphetamine Neg (NEG) Urine Benzodiazepines Screen Neg (NEG) Urine Cocaine Screen Neg (NEG) Urine Cannabinoids Screen Pos (NEG) Urine Ethyl Alcohol Neg (NEG) Test 04/24/18 03:58 Sodium Level 141 mmol/L (136-145) Potassium Level 3.3 mmol/L (3.5-5.1) Chloride Level 103 mmol/L (98-107) Carbon Dioxide Level 27 mmol/L (21-32) Anion Gap 11 (6-14) Blood Urea Nitrogen 16 mg/dL (8-26) Creatinine 1.0 mg/dL (0.7-1.3) Estimated GFR (Cockcroft-Gault) 96.3 Glucose Level 90 mg/dL (70-99) Calcium Level 9.5 mg/dL (8.5-10.1) Laboratory Tests Test 04/24/18 03:50 04/24/18 03:58 White Blood Count 10.9 x10^3/uL (4.0-11.0) Red Blood Count 4.47 x10^6/uL (4.30-5.70) Hemoglobin 14.3 g/dL (13.0-17.5) Hematocrit 40.7 % (39.0-53.0) Mean Corpuscular Volume 91 fL (79-100) Mean Corpuscular Hemoglobin 32 pg (25-35) Mean Corpuscular Hemoglobin Concent 35 g/dL (31-37) Red Cell Distribution Width 12.6 % (11.5-14.5) Platelet Count 268 x10^3/uL (140-400) Neutrophils (%) (Auto) 67 % (31-73) Lymphocytes (%) (Auto) 21 % (24-48) Monocytes (%) (Auto) 10 % (0-9) Eosinophils (%) (Auto) 1 % (0-3) Basophils (%) (Auto) 1 % (0-3) Neutrophils # (Auto) 7.4 x10^3uL (1.8-7.7) Lymphocytes # (Auto) 2.3 x10^3/uL (1.0-4.8) Monocytes # (Auto) 1.1 x10^3/uL (0.0-1.1) Eosinophils # (Auto) 0.1 x10^3/uL (0.0-0.7) Basophils # (Auto) 0.1 x10^3/uL (0.0-0.2) Sodium Level 141 mmol/L (136-145) Potassium Level 3.3 mmol/L (3.5-5.1) Chloride Level 103 mmol/L (98-107) Carbon Dioxide Level 27 mmol/L (21-32) Anion Gap 11 (6-14) Blood Urea Nitrogen 16 mg/dL (8-26) Creatinine 1.0 mg/dL (0.7-1.3) Estimated GFR (Cockcroft-Gault) 96.3 Glucose Level 90 mg/dL (70-99) Calcium Level 9.5 mg/dL (8.5-10.1) Images Images CT head: No acute extra-axial or parenchymal hemorrhage is identified. There is no significant intra-axial mass effect, midline shift, or extra-axial fluid collection. The aragon-white differentiation of the major vascular territories is preserved. The ventricles, sulci, and cisterns are within normal limits in size and configuration. The mastoid air cells and the visualized paranasal sinuses are aerated. No acute calvarial abnormality is identified. Impression: 1. No acute intracranial abnormality is identified. Assessment/Plan Assessment/Plan Impression: Psychosis, suspect primary psychiatric disease, such as first episode of schizophrenia, but with the use of LSD, cannot exclude late effects from this. I doubt that he is having seizures, central nervous system infection, or other intracranial abnormality. Positive blood cultures in 1/2 bottles. Recommendations: Psychiatric assessment team to see Electroencephalogram Additional laboratory studies Fully discussed with patient and family. He wants to leave AGAINST MEDICAL ADVICE, but for now appears to be calmed down and willing to stay one more night at least. Thank you for letting me help with the patient's care. DIONICIO MATT MD Apr 24, 2018 15:18
[2018-04-24] MEDS: VANCOMYCIN PER PHARMACY MC PRN (15:57)
[2018-04-24 19:00] VITALS: BP 101/67
[2018-04-24] MEDS: LACTOBACILLUS RHAMNOSUS GG 1 CAPSULE. PO SCH (21:31)
[2018-04-24 23:00] VITALS: BP 94/62
[2018-04-25] MEDS ORDERED: VANCOMYCIN 750 MG in IV NORMAL SALINE 250ML 250 ML IV SCH ×2 (02:00→09:00)
[2018-04-25 03:00] VITALS: BP 107/57
[2018-04-25 07:00] VITALS: BP 107/56
[2018-04-25] MEDS: BENZONATATE 100 MG CAPSULE. PO SCH ×2 (08:07→14:21)
[2018-04-25] MEDS: LACTOBACILLUS RHAMNOSUS GG 1 CAPSULE. PO SCH (08:07)
[2018-04-25] MEDS: IV NORMAL SALINE 1000ML BAG 1,000 ML IV SCH (08:08)
[2018-04-25 11:00] VITALS: BP 106/57
[2018-04-25] MEDS: VANCOMYCIN PER PHARMACY MC PRN (11:47)
[2018-04-25 15:00] VITALS: BP 107/51
[2018-04-25] MEDS ORDERED: BENZ-8 PO (15:27)
--- NOTE | 2018-04-25 17:24 | PDOC ---
PROGRESS NOTES Assessment Assessment IMPRESSION: Psychosis. Auditory hallucinations. Confusion. Bacteremia? Leukocytosis. Cannabinoids positive. Hx of LSD use. Schizophrenia. RECOMMENDATIONS/PLAN: EEG on 04/25. ID on team. Patient education for drug abstinence. FU with PCP. See Psychiatry. Past Medical History Cardiovascular: No pertinent hx Past Surgical History No pertinent history Family History Psychiatric disease, dementia. 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 MEDICATIONS: Refer to MAR REVIEW OF SYSTEMS: Constitutional: No malnutrition, weight loss, cachexia. Head: No traumatic brain or head injury. Skin: No edema, or rash. Ear: No infection. Eyes: No vision loss, or diplopia. Nose: No bleeding or purulent discharges. Hearing: No hearing decrease. Neck: No injury. Cardiac: No HI, arrhythmia Pulmonary: No pneumonia. GI: No GI Ulcer, GI bleeding Urinary/genital: No dysuria, incontinence, urinary retention. Endocrine: No cousin face, craniofacial dysmorphism, polydactyly. Skeletomuscular: No muscular atrophy, deformity. Neurological: see HP. Psychiatric: Drug use/abuse. Otherwise, not [id number] review of systems. PHYSICAL EXAMINATION: General appearance in no acute distress. HEENT: Normocephalic and nontraumatic. Eyes, nose, ears, and throat are unremarkable. Neck is supple. No lymphadenopathy. No bruits are heard over the carotid artery. No Crepitus. Cardiovascular: S1, S2, regular rate and rhythm. Pulmonary: Clear to auscultation bilaterally. Abdomen: Bowel sounds are positive. Abdomen is soft, nontender, and nondistended. Extremities: No rash, lesions, or edema. No restriction of range of motion NEUROLOGICAL EXAMINATION: Alert. Oriented to time, place and person. PERRL. EOMI. CN: no focal findings. Muscle tone: within normal. Muscle strength: 5 DTR: 2 Plantar reflex: Flexor response bilaterally Gait: not examined in chair. Sensory exam: no abnormal findings. No cerebellar signs elicited. F-T-N test accurate. Objective Objective Vital Signs Date Time Temp Pulse Resp B/P (MAP) Pulse Ox O2 Delivery O2 Flow Rate FiO2 04/25/18 15:00 98.1 63 12 107/51 (69) 100 Room Air 98.1 Intake and Output 04/25/18 07:00 Intake Total 2699 ml Balance 2699 ml Intake Oral 1000 ml IV Total 1699 ml # Voids 4 Vitals Signs Vitals VS - Last 72 Hours, by Label Date Time Temp Pulse Resp B/P (MAP) Pulse Ox O2 Delivery O2 Flow Rate FiO2 04/25/18 15:00 98.1 63 12 107/51 (69) 100 Room Air 98.1 04/25/18 11:00 98.1 61 14 106/57 (73) 100 Room Air 98.1 04/25/18 08:00 Room Air 04/25/18 07:00 97.9 74 18 107/56 (73) 100 Room Air 97.9 04/25/18 03:00 97.7 66 18 107/57 (74) 99 Room Air 97.7 04/24/18 23:00 97.9 61 18 94/62 (73) 98 Room Air 97.9 04/24/18 21:30 Room Air 04/24/18 19:00 97.9 70 18 101/67 (78) 98 Room Air 97.9 04/24/18 15:00 97.8 58 17 103/64 (77) 98 Room Air 97.8 04/24/18 11:21 97.9 80 17 110/64 (79) 98 Room Air 97.9 04/24/18 08:00 Room Air 04/24/18 07:00 98.8 70 17 104/61 (75) 97 Room Air 98.8 Laboratory Laboratory Laboratory Tests Test 04/25/18 03:20 Erythrocyte Sedimentation Rate 5 (0-15) Ammonia < 10 mcmol/L (11-34) Vitamin B12 Level 301 pg/mL (247-911) Thyroid Stimulating Hormone (TSH) 0.822 uIU/mL (0.358-3.74) Microbiology 04/24/18 Blood Culture - Preliminary, Resulted NO GROWTH AFTER 1 DAY Medication Medications Current Medications Lactobacillus Rhamnosus (Culturelle) 1 cap BID PO Last administered on at 08:07; Start 04/24/18 at 21:00 Vancomycin HCl (Vancomycin Trough Level) 1 each 1X ONCE MC ; Start 04/26/18 at 20:30; Stop 04/26/18 at 20:31 Vancomycin HCl 750 mg/Sodium Chloride 250 ml @ 250 mls/hr Q12H IV Last administered on 04/25/18at 02:17; Start 04/25/18 at 02:00; Stop 04/25/18 at 08 :23; Status DC Vancomycin HCl 750 mg/Sodium Chloride 250 ml @ 250 mls/hr Q12H IV Last administered on 04/25/18at 10:31; Start 04/25/18 at 09:00 Comment Review of Relevant I have reviewed the following items christina (where applicable) has been applied. LUIS HERNANDEZ MD Apr 25, 2018 17:24
--- NOTE | 2018-04-27 13:27 | EEG ---
DATE OF SERVICE: 04/25/2018 EEG NUMBER: [id number]. OBJECTIVE: This is a 17-year-old male patient with history of mental status changes as confusion. EEG was requested to help rule out seizure. METHODS: Twenty electrodes were applied according to the international 10-20 electrode placement system. EKG monitoring, hyperventilation, intermittent photic stimulation, monopolar and bipolar montages are routinely utilized. The record was obtained on a digital system with video monitoring. FINDINGS: 1. Background: The patient was recorded in the awake and drowsy states. No sleep state was recorded. The overall background amplitude is 10-30 microvolts. A posterior dominant rhythm of 8-10 Hz is observed. 2. Abnormalities: No specific epileptiform discharge or electrographic seizure is seen. No focal or diffuse slowing. 3. Activation: Hyperventilation was performed with good efforts and normal response. Intermittent photic stimulation was performed with photic driving. No specific epileptiform discharge or electrographic seizure induced by hyperventilation or intermittent photic stimulation. IMPRESSION: This EEG is a normal study for the awake and drowsy states. No sleep state was recorded. No focal, lateralizing, specific epileptiform discharge or electrographic seizure is seen. LUIS HERNANDEZ MD DR: MAURO/maribell JOB#: [id number] / [id number] KARO
[2018-04-27 16:18] LABS: ANA INTERP Negative (.)
== END 2018-04-25 18:19 | disposition home or self-care (01) | DRG 71 ==
LOC: ER 11:48 → 5 NORTH 16:27
PROVIDERS: ADMIT Internal Medicine; ATTEND Internal Medicine
DX: G93.40 Encephalopathy, unspecified (principal); R78.81 Bacteremia; F29 Unspecified psychosis not due to a substance or known physiological condition; E87.6 Hypokalemia; F12.90 Cannabis use, unspecified, uncomplicated; F20.9 Schizophrenia, unspecified; Z82.49 Family history of ischemic heart disease and other diseases of the circulatory system; Z88.8 Allergy status to other drugs, medicaments and biological substances; Z79.899 Other long term (current) drug therapy; Z81.8 Family history of other mental and behavioral disorders
CPT/HCPCS: 36415; 70450; 71045; 80048; 80053; 80307; 81001; 82140; 82607; 82962; 83605; 84443; 85025; 85651; 86038; 87040; 87205; 95816; 99406; J3370; J7030; J7050; 99285-25; G0479

== ENCOUNTER 2018-09-27 17:22 | Emergency (ER) | payer OTHER ==
[~2018-09-27] VITALS: Ht 172.7 cm; Wt 54.4 kg
[~2018-09-27 17:22] MED LIST: BENZ-8 PO
[2018-09-27 17:25] VITALS: BP 116/61
--- NOTE | 2018-09-27 17:42 | PHYS DOC ---
Past Medical History Past Medical History: No Pertinent History Past Surgical History: No Surgical History Alcohol Use: None Drug Use: Marijuana Adult General Chief Complaint Chief Complaint: ANIMAL BITE HPI HPI Patient is a 18 year old male who presents with dog bites to the face, patient got bit by a family member's dog. They do not know vaccine status of the dog but patient is up-to-date with his tetanus. Review of Systems Review of Systems Constitutional: Denies fever or chills [] Musculoskeletal: Denies back pain or joint pain [] Integument: Reports dog bites to the face, Neurologic: Denies headache, focal weakness or sensory changes [] All other systems were reviewed and found to be within normal limits, except as documented in this note. Current Medications Current Medications Current Medications Medications (Trade) Dose Ordered Sig/Magdaleno Start Time Stop Time Status Last Admin Dose Admin Neomycin/ Polymyxin/ Bacitracin (Triple Antibiotic Ointment) 1 pkt 1X ONCE 09/27/18 18:00 09/27/18 18:01 UNV Allergies Allergies Allergies Coded Allergies Type Severity Reaction Last Updated Verified nickel Allergy Intermediate Rash 04/24/18 Yes Physical Exam Physical Exam Constitutional: Well developed, well nourished, no acute distress, non-toxic appearance. [] Abdomen: Bowel sounds normal, soft, no tenderness, no masses, no pulsatile masses. [] Skin: There is a tiny puncture wound just beneath the left nasal opening, wound is approximately 0.3 x 0.1 cm. There is multiple superficial laceration on bilateral lips. None of them needed suturing. Back: No tenderness, no CVA tenderness. [] Extremities: No tenderness, no cyanosis, no clubbing, ROM intact, no edema. [] Neurologic: Alert and oriented X 3, normal motor function, normal sensory function, no focal deficits noted. [] Psychologic: Affect normal, judgement normal, mood normal. [] Current Patient Data Vital Signs Vital Signs Date Time Temp Pulse Resp B/P (MAP) Pulse Ox O2 Delivery O2 Flow Rate FiO2 09/27/18 17:25 97.8 60 16 116/61 (79) 99 Room Air 97.8 EKG EKG [] Radiology/Procedures Radiology/Procedures [] Course & Med Decision Making Course & Med Decision Making Pertinent Labs and Imaging studies reviewed. (See chart for details) Patient has dog bites to the face and lips, none of them needed suturing. His tetanus vaccine is up-to-date. Patient will be discharged with Augmentin. Wound care instructions and return precautions provided. Dragon Disclaimer Dragon Disclaimer This electronic medical record was generated, in whole or in part, using a voice recognition dictation system. Departure Departure Impression: Primary Impression: Dog bite of face Disposition: HOME, SELF-CARE Condition: STABLE Referrals: NO PCP (PCP) Follow-up with your doctor in one week Patient Instructions: Animal Bite, [id number] Additional Instructions: You were evaluated for dog bites to your face. Keep the areas very clean. Apply Neosporin to the areas twice a day. Ensure you complete your oral antibiotics. Come back to the ED at any point wound condition worsens. Follow-up with your doctor in 1-2 weeks. Scripts Amoxicillin/Potassium Clav (AUGMENTIN 875-125 TABLET) 1 Each Tablet 1 TAB PO BID, #20 TAB Prov: NAM HOPSON APRN 09/27/18 Problem Qualifiers Primary Impression: Dog bite of face Encounter type: initial encounter Qualified Codes: S01.85XA - Open bite of other part of head, initial encounter; W54.0XXA - Bitten by dog, initial encounter NAM HOPSON APRN Sep 27, 2018 17:42
[2018-09-27] MEDS ORDERED: AMOX1TAB61 PO (17:55)
[2018-09-27] MEDS ORDERED: NEOMY/BACITR/POLYMYXIN OINT PACKET. TP ONE (17:57)
[2018-09-27] MEDS: NEOMY/BACITR/POLYMYXIN OINT PACKET. TP ONE (17:59)
== END 2018-09-27 18:03 | disposition home or self-care (01) ==
LOC: ER 17:22
DX: S01.85XA Open bite of other part of head, initial encounter (principal); Z91.09 Other allergy status, other than to drugs and biological substances; W54.0XXA Bitten by dog, initial encounter; Y93.89 Activity, other specified; Y92.89 Other specified places as the place of occurrence of the external cause; Y99.8 Other external cause status
CPT/HCPCS: 99283